=== PATIENT | male | born 1955 | race Caucasian/White ===

== ENCOUNTER 2020-01-20 12:31 | Emergency (ER) | payer MEDICAID ==
[~2020-01-20] VITALS: Ht 167.6 cm; Wt 68.0 kg
--- NOTE | 2020-01-20 12:36 | NUR ---
DR ACKERMAN AT BEDSIDE
--- NOTE | 2020-01-20 12:37 | NUR ---
KILLIANKendy FROM [facility] "RECENTLY DIAGNOSED W PNEUMONIA, WAS ADMITTED TO SNF, SOB, LOW O2 SATURATION AT 90'S ON ARRIVAL, WAS GIVEN RESPIRATORY TREATMENT, O2 SATURATION WENT UP TO 96%". 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
[2020-01-20] MEDS ORDERED: BISA10SU11 RC (12:50)
[2020-01-20] MEDS ORDERED: QUET200T PO (12:50)
[2020-01-20] MEDS ORDERED: DOCU-141 PO (12:50)
[2020-01-20] MEDS ORDERED: ENOX40DI SQ (12:50)
[2020-01-20] MEDS ORDERED: VANC750V IV (12:50)
[2020-01-20] MEDS ORDERED: MAGN400O6 PO (12:50)
[2020-01-20] MEDS ORDERED: CHOL100034 PO (12:50)
[2020-01-20] MEDS ORDERED: OXYC-128 PO (12:50)
[2020-01-20] MEDS ORDERED: ATOR10TA PO (12:50)
[2020-01-20] MEDS ORDERED: CLON0.1T PO (12:50)
[2020-01-20] MEDS ORDERED: ACET-868 PO (12:50)
[2020-01-20] MEDS ORDERED: OMEP40CA13 PO (12:50)
[2020-01-20] MEDS ORDERED: QUET25TA PO (12:50)
[2020-01-20] MEDS ORDERED: TRAZ-182 PO (12:50)
[2020-01-20] MEDS ORDERED: GUAI600T53 PO (12:50)
[2020-01-20] MEDS ORDERED: CLON1TAB12 PO ×2 (12:50)
[2020-01-20] MEDS ORDERED: AMLO10TA7 PO (12:50)
[2020-01-20] MEDS ORDERED: ACET100V5 NEB (12:50)
[2020-01-20] MEDS ORDERED: GABA-534 PO (12:50)
[2020-01-20] MEDS ORDERED: LEVA0.31 IH (12:50)
[2020-01-20] MEDS ORDERED: MULT-659 PO (12:50)
[2020-01-20] MEDS ORDERED: TAMS-12 PO (12:50)
[2020-01-20] MEDS ORDERED: MELA3TAB41 PO (12:50)
[2020-01-20 12:56] LABS: BASOPHILS # (AUTO) 0.1 /CMM (0.0-0.2); BASOPHILS % (AUTO) 0.8 % (0.0-2.0); EOSINOPHILS % (AUTO) 0.5 % (0.0-6.0); HEMATOCRIT 27 % (39-51); HEMOGLOBIN 9.1 g/dL (13.5-17.5); LYMPHOCYTES # (AUTO) 1.7 /CMM (0.8-4.8); LYMPHOCYTES % (AUTO) 15.7 % (20.0-44.0); MEAN CORPUSCULAR HGB CONC 33 g/dl (31.0-36.0); MEAN CORPUSCULAR VOLUME 91 fL (80-96); MONOCYTES # (AUTO) 0.9 /CMM (0.1-1.30); MONOCYTES % (AUTO) 8.7 % (2.0-12.0); NEUTROPHILS % (AUTO) 74.3 % (43.0-81.0); PLATELET COUNT (AUTO) 403 /CMM (150-450); RED BLOOD CELL COUNT(AUTO) 3.01 MIL/uL (4.5-6.0); WHITE BLOOD COUNT (AUTO) 10.7 K/uL (4.3-11.0)
[2020-01-20] MEDS ORDERED: IV NS 0.9% 1,000 ML BAG IV ONE (13:00)
[2020-01-20] MEDS ORDERED: ACETAMINOPHEN ES 500 MG TABLET ONE (13:09)
[2020-01-20] MEDS ORDERED: IBUPROFEN 600 MG TABLET PO ONE ×2 (13:09→13:30)
[2020-01-20 13:11] LABS: CALCIUM, SERUM 9.1 mg/dL (8.5-10.1); CARBON DIOXIDE 25 mmol/L (21-32); CHLORIDE 102 mmol/L (98-107); CREATININE 2.7 mg/dL (0.6-1.3); GLUCOSE 127 mg/dL (74-106); POTASSIUM 4.9 mmol/L (3.5-5.1); SODIUM SERUM 138 mmol/L (136-145); UREA NITROGEN, BLOOD 17 mg/dL (7-18)
[2020-01-20 13:17] LABS: ALANINE AMINOTRANSFERASE 27 U/L (12-78); ALBUMIN 2.5 g/dL (3.4-5.0); ALKALINE PHOSPHATASE 92 U/L (46-116); ASPARTATE AMINOTRANSFERASE 21 U/L (15-37); BILIRUBIN,DIRECT 0.1 mg/dL (0.0-0.2); BILIRUBIN,TOTAL 0.4 mg/dL (0.2-1.0); TOTAL PROTEIN, SERUM 7.7 g/dL (6.4-8.2)
[2020-01-20] MEDS ORDERED: ACETAMINOPHEN ES 500 MG TABLET PO ONE (13:30)
--- NOTE | 2020-01-20 14:15 | NUR ---
MARIE ALVAREZ FROM [facility] CALLED TO GET CLINICAL INFORMATION FAXED TO HER. FAXED CLINICALS.
--- NOTE | 2020-01-20 14:15 | NUR ---
CM MAY CONTACT NUMBER [phone]. FAX NUMBER [phone].
[2020-01-20] MEDS ORDERED: VANCOMYCIN 1 GM VIAL ONE (14:18)
[2020-01-20] MEDS ORDERED: VANCOMYCIN HCL 1 GM in IV D5W 260 ML IV ONE (14:30)
--- NOTE | 2020-01-20 15:13 | NUR ---
PAGED DR. PHILLIP.
--- NOTE | 2020-01-20 16:50 | NUR ---
CM MAY CALLED. TRANSFER INFORMATIN WAS GIVEN. PT IS GOING TO [facility] 438-A. NUMBER FOR REPORT [phone]. DR. MEZA IS THE ACCEPTING. ETA FOR AMBULANCE. 90 MINUTES WITH [facility].
--- NOTE | 2020-01-20 17:07 | NUR ---
REPORT GIVEN TO GUILLAUME BELLE OF [facility]
[2020-01-20] MEDS ORDERED: ACETAMINOPHEN W/ CODEINE#3 1 EA TABLET ONE (18:42)
[2020-01-20 18:46] VITALS: BP 130/72
--- NOTE | 2020-01-20 18:47 | NUR ---
Patient picked up by [facility] in stable condition. Clinicals handed to EMT to be given to [facility], All belongings brought with the patient.
[2020-01-20] MEDS ORDERED: ACETAMINOPHEN W/ CODEINE#3 1 EA TABLET PO ONE (19:00)
--- NOTE | 2020-01-20 23:22 | NUR ---
BARBRA BECK AT [facility] CALLED TO GET ATB INFORMATION. GAVE DOSE ANS TIME IT WAS ADMINISTERED
== END 2020-01-20 18:54 | disposition short-term general hospital (02) ==
LOC: ER 12:36
DX: J18.9 Pneumonia, unspecified organism (principal); E86.0 Dehydration; Z79.899 Other long term (current) drug therapy
CPT/HCPCS: 36415; 71045; 80048; 80076; 83605; 84145; 84484; 85025; 85730; 87040 ×2; 87081; 93005; 96361; 96365; 99285; J3370; J7030; J7060

== ENCOUNTER 2021-10-06 14:37 | Emergency (ER) | payer MEDICARE, OTHER ==
[~2021-10-06] VITALS: Ht 172.7 cm; Wt 74.8 kg
[~2021-10-06 14:37] MED LIST: ACET-868 PO; ACET100V5 NEB; AMLO-213 PO; ATOR10TA PO; BISA10SU11 RC; CHOL100034 PO; CLON0.1T PO; CLON1TAB12 PO; DOCU-141 PO; ENOX40DI SQ; GABA-534 PO; GUAI600T53 PO; LEVA0.31 IH; MAGN400O6 PO; MELA3TAB41 PO; MULT-659 PO; OMEP40CA21 PO; OXYC-128 PO; QUET200T PO; QUET25TA PO; TAMS-12 PO; TRAZ-182 PO; VANC750V IV
--- NOTE | 2021-10-06 14:56 | NUR ---
ABDOMINAL PAIN; WORST FOR THE LAST 3 DAYS; WITH NAUSEA AND VOMITING. PT A/OX4 TOLERATING R/A WELL. CONNECTED PT TO MONITOR AND POX. SAFETY MEASURES IN PLACE
--- NOTE | 2021-10-06 15:10 | NUR ---
URINE COLLECTED AND SENT TO LAB
--- NOTE | 2021-10-06 15:25 | NUR ---
[employer]ODU[employer] CHECKER AT PT'S BESIDE
[2021-10-06] MEDS ORDERED: MORPHINE SULFATE INJ 2 MG/ML DISP.SYRIN IV ONE (15:30)
[2021-10-06 15:37] LABS: BASOPHILS # (AUTO) 0.1 K/uL (0.0-0.2); BASOPHILS % (AUTO) 0.9 % (0.0-2.0); EOSINOPHILS % (AUTO) 0.9 % (0.0-6.0); HEMATOCRIT 36 % (39-51); HEMOGLOBIN 12.1 g/dL (13.5-17.5); LYMPHOCYTES # (AUTO) 1.2 K/uL (0.8-4.8); MEAN CORPUSCULAR HGB CONC 34 g/dl (31.0-36.0); MEAN CORPUSCULAR VOLUME 89 fL (80-96); MONOCYTES # (AUTO) 0.4 K/uL (0.1-1.30); MONOCYTES % (AUTO) 4.5 % (2.0-12.0); NEUTROPHILS # (AUTO) 6.9 K/uL (1.8-8.9); NEUTROPHILS % (AUTO) 79.7 % (43.0-81.0); PLATELET COUNT (AUTO) 266 K/uL (150-450); RED BLOOD CELL COUNT(AUTO) 4.06 MIL/uL (4.5-6.0); WHITE BLOOD COUNT (AUTO) 8.7 K/uL (4.3-11.0)
[2021-10-06] MEDS ORDERED: MORPHINE SULFATE INJ 4 MG/ML DISP.SYRIN ONE ×2 (15:44→17:41)
[2021-10-06 15:45] LABS: CREATININE 2.7 mg/dL (0.6-1.3); POTASSIUM 4.3 mmol/L (3.5-5.1)
[2021-10-06 15:53] LABS: ALBUMIN 4.2 g/dL (3.4-5.0); BILIRUBIN,DIRECT 0.1 mg/dL (0.0-0.2); BILIRUBIN,TOTAL 0.5 mg/dL (0.2-1.0); TOTAL PROTEIN, SERUM 7.8 g/dL (6.4-8.2)
--- NOTE | 2021-10-06 15:55 | NUR ---
Jenny HAND #[id number] S/L; PATENT AND INTACT
[2021-10-06 16:28] LABS: BILIRUBIN,URINE NEGATIVE (NEGATIVE); COLOR,URINE YELLOW (YELLOW); LEUKOCYTE ESTERASE ,URINE NEGATIVE (NEGATIVE); NITRITE, URINE NEGATIVE (NEGATIVE); PH,URINE 5.5 (5.0-8.0); PROTEIN,URINE TRACE mg/dl (NEGATIVE); UGLUCOSE NEGATIVE (NEGATIVE); UROBILINOGEN,URINE 0.2 EU/dL (0.2)
[2021-10-06 16:38] LABS: BACTERIA,URINE Moderate /HPF (None Seen); RBC,URINE 0-2 /HPF (0-2); SQUAMOUS EPITHELIAL CELL,UR Few /HPF (None Seen); WBC,URINE 0-2 /HPF (0-3)
[2021-10-06 16:39] LABS: FINE GRANULAR CASTS,URINE Few /LPF (None Seen); HYALINE CASTS, URINE Few /LPF (None Seen)
--- NOTE | 2021-10-06 16:42 | NUR ---
PT DENIES URGE TO URINATE BEFORE STRAIGHT CATH. STRAIGHT CATH DONE WITH 450ML URINE OUTPUT; URINE CLEAR AND YELLOW.
[2021-10-06] MEDS ORDERED: KETOROLAC TROMETHAMINE INJ 30 MG/ML VIAL ONE (16:46)
[2021-10-06] MEDS ORDERED: ONDANSETRON HCL/PF 4 MG/2 ML VIAL ONE (16:46)
--- NOTE | 2021-10-06 16:47 | NUR ---
PT TAKEN TO CT VIA SATYA
--- NOTE | 2021-10-06 16:55 | NUR ---
PT RETURNED TO ER BED [address]
[2021-10-06] MEDS ORDERED: KETOROLAC TROMETHAMINE INJ 30 MG/ML VIAL IV ONE (17:00)
[2021-10-06] MEDS ORDERED: ONDANSETRON HCL/PF - ER 4 MG/2 ML VIAL IV ONE (17:00)
--- NOTE | 2021-10-06 17:39 | NUR ---
DR. ALVAREZ ON PHONE CALL WITH DR. ACEVES REGARDING PT
[2021-10-06] MEDS: MORPHINE SULFATE INJ 2 MG/ML DISP.SYRIN IV ONE ×2 (17:45→17:47)
[2021-10-06] MEDS ORDERED: HYDR-4279 PO (17:51)
--- NOTE | 2021-10-06 18:50 | NUR ---
Patient discharged to home in stable condition. rx Written and verbal after care instructions given. Patient verbalizes understanding of instruction. pt ambulatory with a steady gait
[2021-10-06 19:00] VITALS: BP 137/84
== END 2021-10-06 18:50 | disposition home or self-care (01) ==
LOC: ER 14:47
DX: R10.2 Pelvic and perineal pain (principal); G89.29 Other chronic pain; R33.9 Retention of urine, unspecified; I12.9 Hypertensive chronic kidney disease with stage 1 through stage 4 chronic kidney disease, or unspecified chronic kidney disease; N18.9 Chronic kidney disease, unspecified; Z79.899 Other long term (current) drug therapy
CPT/HCPCS: 36415; 74176; 80048; 80076; 81001; 83690; 85025; 87086; 93005; 96374; 96375; 99285; J2270 ×2; J2405 ×2; J1885